=== PATIENT | male | born 1995 | race Caucasian/White ===

== ENCOUNTER 2022-03-13 13:48 | Inpatient (IN) ==
[2022-03-13 14:13] LABS: Basophils # 0.2 K/mcL (0.0-0.2); Basophils % 1.7 %; Eosinophils # 1.1 K/mcL (0.0-0.6); Hematocrit 50.7 % (37.5-50.1); Hemoglobin 17.2 g/dL (12.9-16.9); Immature Granulocytes % 1.5 % (0-4); Lymphocytes # 3.8 K/mcL (0.6-4.6); Mean Corpuscular HGB Conc 33.9 g/dL (31.6-35.5); Mean Corpuscular Hemoglobin 33.1 pg (28.0-33.3); Mean Corpuscular Volume 97.7 fL (83.0-100.0); Mean Platelet Volume 9.1 fL (9.4-12.4); Monocytes # 1.1 K/mcL (0.0-1.3); Neutrophils # 6.8 K/mcL (1.6-8.9); Platelet Count 406 K/mcL (140-400); Red Blood Count 5.19 M/mcL (4.19-5.50); Red Cell Distribution Width 11.3 % (11.5-14.5); Segmented Neutrophils % 51.8 %; White Blood Count 13.1 K/mcL (4.3-11.1)
[2022-03-13 14:18] LABS: Bilirubin,Urine Negative (Negative); Blood,Urine Negative (Negative); Clarity,Urine Clear (Clear); Color,Urine Colorless (Yellow); Glucose,Urine (UA) Normal (Normal); Ketones,Urine Negative (Negative); Leukocyte Esterase,Urine Negative (Negative); Nitrite,Urine Negative (Negative); Protein,Urine Trace mg/dL (Neg-Trace); Specific Gravity,Urine 1.007 (1.010-1.025); Urobilinogen,Urine Normal (Normal)
[2022-03-13 14:27] LABS: Amphetamine Screen,Urine Negative ng/mL (Cutoff=1000); Barbiturate Screen,Urine Negative ng/mL (Cutoff=200); Benzodiazepines Screen,Urine Negative ng/mL (Cutoff=200); Cannabinoid Screen,Urine Negative ng/mL (Cutoff = 50); Cocaine Screen,Urine Negative ng/mL (Cutoff= 300); Opiate Screen,Urine Negative ng/mL (Cutoff=300); Phencyclidine Screen,Urine Negative ng/mL (Cutoff=25)
[2022-03-13 14:36] LABS: Acetaminophen < 10 mcg/mL (10-20); BUN/Creatinine Ratio 6 (6-26); Blood Urea Nitrogen 6 mg/dL (6-20); Calcium 9.7 mg/dL (8.6-10.3); Carbon Dioxide 19 mEq/L (23-29); Chloride 103 mEq/L (98-107); Ethanol 318 mg/dL (Less than 10); Glucose 94 mg/dL (70-105); Osmolality,Calculated 281 (280-300); Salicylate < 2.5 mg/dL (15.0-30.0); Sodium 137 mEq/L (136-145); eGFR For African Americans > 60 (> 60); eGFR For Non-African Americans > 60 (> 60)
[2022-03-13] MEDS ORDERED: Ibuprofen 600 MG TABLET PO ONE (14:59)
[2022-03-13] MEDS ORDERED: Nicotine 14 MG PATCH.TD24 TD ONE (18:15)
[2022-03-14 04:49] LABS: Influenza A PCR Negative (Negative); Influenza B PCR Negative (Negative); Resp. Syncytial Virus PCR Negative (Negative)
[2022-03-14 04:51] LABS: SARS-CoV-2 by PCR (In House) Negative (Negative)
[2022-03-14] MEDS ORDERED: *HR* LORazepam 2 MG/ML VIAL IM PRN (05:22)
[2022-03-14] MEDS ORDERED: haloperidoL 5 MG TABLET PO PRN (05:22)
[2022-03-14] MEDS ORDERED: Ibuprofen 400 MG TABLET PO PRN (05:22)
[2022-03-14] MEDS ORDERED: Mag Hydrox/Al Hydrox/Simeth 30 ML UDC PO PRN (05:22)
[2022-03-14] MEDS ORDERED: Haloperidol Lactate 5 MG/ML VIAL IM PRN (05:22)
[2022-03-14] MEDS ORDERED: MOM Conc 10 ML UD.LIQ PO PRN (05:22)
[2022-03-14] MEDS ORDERED: *HR* LORazepam 1 MG TABLET PO PRN (05:22)
[2022-03-14] MEDS ORDERED: traZODone 50 MG TABLET PO PRN (05:22)
[2022-03-14] MEDS ORDERED: *HR* LORazepam 0.5 MG TABLET PO ONE ×2 (06:06→11:21)
[2022-03-14] MEDS: Vitamin B Complex/Vit C/Vit E 1 EACH TABLET PO SCH (09:13)
[2022-03-14] MEDS: Nicotine 2 MG GUM BC PRN ×2 (09:16→14:11)
[2022-03-14] MEDS ORDERED: *HR* LORazepam 1 MG TABLET PO ONE ×2 (15:10→18:52)
[2022-03-14] MEDS: Folic Acid 1 MG TABLET PO SCH (16:28)
[2022-03-14] MEDS: *HR* LORazepam 0.5 MG TABLET PO SCH ×2 (16:28→20:54)
[2022-03-14] MEDS: Thiamine (B-1) 100 MG TABLET PO SCH (16:28)
[2022-03-14] MEDS: hydrOXYzine pamoate 25 MG CAPSULE PO PRN (17:17)
[2022-03-15] MEDS: Vitamin B Complex/Vit C/Vit E 1 EACH TABLET PO SCH (08:52)
[2022-03-15] MEDS: Thiamine (B-1) 100 MG TABLET PO SCH (08:53)
[2022-03-15] MEDS: Nicotine 2 MG GUM BC PRN ×4 (08:53→20:27)
[2022-03-15] MEDS: Folic Acid 1 MG TABLET PO SCH (08:53)
[2022-03-15] MEDS ORDERED: *HR* LORazepam 0.5 MG TABLET PO SCH (09:00)
[2022-03-15 09:40] LABS: Basophils # 0.1 K/mcL (0.0-0.2); Basophils % 1.6 %; Eosinophils # 0.8 K/mcL (0.0-0.6); Eosinophils % 9.6 %; Hematocrit 48.7 % (37.5-50.1); Hemoglobin 16.6 g/dL (12.9-16.9); Lymphocytes # 1.8 K/mcL (0.6-4.6); Lymphocytes % 22.4 %; Mean Corpuscular HGB Conc 34.1 g/dL (31.6-35.5); Mean Corpuscular Hemoglobin 33.4 pg (28.0-33.3); Mean Platelet Volume 9.4 fL (9.4-12.4); Monocytes # 0.5 K/mcL (0.0-1.3); Monocytes % 6.1 %; Neutrophils # 4.8 K/mcL (1.6-8.9); Platelet Count 357 K/mcL (140-400); Red Blood Count 4.97 M/mcL (4.19-5.50); Red Cell Distribution Width 11.2 % (11.5-14.5); Segmented Neutrophils % 59.3 %
[2022-03-15 10:02] LABS: Alanine Aminotransferase 50 Units/L (7-52); Albumin 4.7 g/dL (3.5-5.7); Albumin/Globulin Ratio 1.5 (1.1-2.2); Alkaline Phosphatase 75 Units/L (34-104); Aspartate Amino Transferase 36 Units/L (13-39); BUN/Creatinine Ratio 9 (6-26); Blood Urea Nitrogen 10 mg/dL (6-20); Calcium 10.2 mg/dL (8.6-10.3); Carbon Dioxide 29 mEq/L (23-29); Chloride 98 mEq/L (98-107); Globulin 3.2 g/dL (2.4-3.5); Glucose 203 mg/dL (70-105); Osmolality,Calculated 283 (280-300); Potassium 4.7 mEq/L (3.5-5.1); Sodium 134 mEq/L (136-145); Total Protein 7.9 g/dL (6.4-8.9); eGFR For African Americans > 60 (> 60); eGFR For Non-African Americans > 60 (> 60)
[2022-03-15 10:14] LABS: Thyroid Stimulating Hormone 2.052 mcIU/mL (0.340-5.600)
[2022-03-15] MEDS: hydrOXYzine pamoate 25 MG CAPSULE PO PRN ×3 (11:48→20:27)
[2022-03-15] MEDS: *HR* LORazepam 0.5 MG TABLET PO SCH ×2 (13:59→20:27)
[2022-03-15] MEDS ORDERED: *HR* LORazepam 0.5 MG TABLET PO PRN (15:00)
[2022-03-15] MEDS ORDERED: *HR* LORazepam 1 MG TABLET PO ONE (15:25)
[2022-03-16] MEDS ORDERED: amLODIPine 5 MG TABLET PO SCH (09:15)
[2022-03-16 09:21] VITALS: BP 153/108; PULSE 88; TEMP 97.3; O2SAT 99
[2022-03-16] MEDS: *HR* LORazepam 0.5 MG TABLET PO SCH (09:35)
[2022-03-16] MEDS: Vitamin B Complex/Vit C/Vit E 1 EACH TABLET PO SCH (09:35)
[2022-03-16] MEDS: Folic Acid 1 MG TABLET PO SCH (09:35)
[2022-03-16] MEDS: Thiamine (B-1) 100 MG TABLET PO SCH (09:35)
[2022-03-16] MEDS: Nicotine 2 MG GUM BC PRN ×2 (09:37→12:30)
== END 2022-03-16 13:20 | disposition home or self-care (01) | DRG 897 ==
LOC: EMEROOARM 13:48 → INTOOBSV 03-14 05:17 → 1ANU 03-14 05:17
PROVIDERS: ADMIT Psychiatry & Neurology Psychiatry; ATTEND Psychiatry & Neurology Psychiatry